=== PATIENT | female | born 1950 | race African-American/Black ===

== ENCOUNTER 2017-03-06 16:17 | Observation (INO) | payer OTHER, MEDICAID ==
[2017-03-06] MEDS ORDERED: ASPIRIN ONE (17:24)
[2017-03-06] MEDS ORDERED: NITROSTAT SL ONE (17:24)
[2017-03-06] MEDS ORDERED: MORPHINE SULFATE INJ 4 MG IVP ONE (17:29)
[2017-03-06] MEDS ORDERED: MORPHINE SULFATE INJ 4 MG ONE (17:30)
[2017-03-06] MEDS: NITROSTAT SL PRN ×2 (17:30→18:35)
--- NOTE | 2017-03-06 17:49 | DR.GENAD ---
HPI - PCP Primary Care Physician: DANNIELLE - Complaint/Symptoms Chief Complaint Doctors Comments: chest pain w/o nausea ,diaphoresis and SOB. Chief Complaint:: PT C/O BACK, ABD, AND LEG PAIN. PT STATES HER ABD IS HURTING AND SHE IS NOT ABLE TO KEEP ANYTHING DOWN. - Nurses notes reviewed Nurses Notes Review: Yes - Source History Provided: Patient - Mode of Arrival Mode of Arrival: Ambulatory - Timing Onset of Chief Complaint: 03/05/17 Came on: Gradually - Duration Duration: Intermittent - Severity Severity: Moderate PMH - PMH Past Medical History: Yes Past Medical History: Hypertension, Diabetes, Hypothyroidism, CVA Past Surgical History: Yes Surgical History: Abdominal Surgery, Ortho Surgery - Family History History of Family Medical Conditions: Yes Family Medical History: Diabetes Mellitus, [place], Hypertension - Social History Does any household member use tobacco: No Alcohol Use: Rarely Do you use any recreational Drugs:: No Lives With: Family Lives Where: Home - infectious screening In the last 2 months have you had wt loss of >10#?: NO Have you had fever, night sweats or hemotysis?: No Have you traveled outside the country in the last 6 months?: No Isolation: Standard ROS - Review of Systems Constitutional: No Symptoms Reported Eyes: No Symptoms Reported Respiratoy: No Symptoms Reported Cardiovascular: Chest Pain Gastrointestinal/Abdominal: Abdominal Pain Genitourinary: No Symptoms Reported Neurological: No Symptoms Reported Musculoskeletal: Leg Integumentary: No Symptoms Reported Hematologic/Lymphatic: No Symptoms Reported Endocrine: No Symptoms Reported Psychiatric: Other (stoic and flat affect) PE - Vital Signs Vitals: Temperature 98.4 F Pulse Rate [Right Brachial] 100 Pulse Rate 126 Respiratory Rate 20 Blood Pressure [Right Arm] 139/87 Blood Pressure [Left Arm] 130/77 Blood Pressure 155/99 O2 Sat by Pulse Oximetry 98 - General Limitations: Language Barrier General Appearance: Alert, In No Apparent Distress - Head Head Exam: Normal Inspection - Eyes Eye exam: Normal Appearance - ENT ENT Exam: Normal Exam External Ear Exam: Normal External Inspection Mouth Exam: Normal Inspection Throat Exam: Normal Inspection - Neck Neck Exam: Normal Inspection, Full ROM, Trachea Midline - Respiratory Respiratory Exam: Normal Lung Sounds Bilat - Cardiovascular Cardiovascular Exam: Regular Rate, Normal Rhythm, Normal Heart Sounds - Abdominal Exam Abdominal Exam: Normal Inspection, Normal Bowel Sounds, Soft - Back Back Exam: Normal Inspection - Psychiatric Psychiatric Exam: Flat Affect - Skin Skin Exam: Warm, Dry, Intact ROR - Labs Reviewed Result Diagrams: 03/06/17 16:50 03/06/17 16:50 Laboratory: WBC 5.7 X10^3/uL (3.6-10.0) 03/06/17 16:50 RBC 4.40 X10^6/uL (3.5-5.4) 03/06/17 16:50 Hgb 12.3 g/dL (12.0-16.0) 03/06/17 16:50 Hct 37.3 % (36.0-47.0) 03/06/17 16:50 MCV 84.7 fL (80.0-100.0) 03/06/17 16:50 MCH 27.8 pg (27.0-34.0) 03/06/17 16:50 MCHC 32.8 g/dL (33.0-35.0) L 03/06/17 16:50 RDW 14.1 % (11.6-16.5) 03/06/17 16:50 Plt Count 207 X10^3/uL (150.0-450.0) 03/06/17 16:50 Plt Count Comment Adequate (ADEQUATE) 03/06/17 16:50 MPV 9.5 fL (7.4-11.0) 03/06/17 16:50 Neut % 60.2 % (42.0-75.0) 03/06/17 16:50 Lymph % 30.6 % (21.0-51.0) 03/06/17 16:50 [place] % 7.0 % (0.0-13.0) 03/06/17 16:50 Eos % 1.5 % (0.9-2.9) 03/06/17 16:50 Baso % 0.7 % (0.2-1.0) 03/06/17 16:50 Neut # 3.3 x10^3/uL (2.2-4.8) 03/06/17 16:50 Lymph # 1.7 X10^3/uL (1.3-2.9) 03/06/17 16:50 [place] # 0.4 x10^3/uL (0.3-0.8) 03/06/17 16:50 Eos # 0.1 x10^3/uL (0.0-0.2) 03/06/17 16:50 Baso # 0.0 X10^3/uL (0.0-0.1) 03/06/17 16:50 Absolute Nucleated RBC 0.1 /100WBC 03/06/17 16:50 Plt Morphology Comment Normal (NORMAL) 03/06/17 16:50 RBC Morphology Abnormal (NORMAL) A 03/06/17 16:50 Hypochromasia 1+ A 03/06/17 16:50 Anisocytosis Slight A 03/06/17 16:50 Ovalocytes Present 03/06/17 16:50 Sodium 143 mmol/L (136-145) 03/06/17 16:50 Corrected Sodium 147 mmol/L (136-145) H 03/06/17 16:50 Potassium 3.5 mmol/L (3.5-5.1) 03/06/17 16:50 Chloride 107 mmol/L (98-107) 03/06/17 16:50 Carbon Dioxide 26.4 mmol/L (21-32) 03/06/17 16:50 BUN 15 mg/dL (7-18) 03/06/17 16:50 Creatinine 1.15 mg/dL (0.55-1.02) H 03/06/17 16:50 Est GFR (MDRD) Af Amer > 60 (>60) 03/06/17 16:50 Est GFR (MDRD) Non-Af 50 (>60) L 03/06/17 16:50 Glucose 255 mg/dL (65-99) H 03/06/17 16:50 Calcium 9.3 mg/dL (8.5-10.1) 03/06/17 16:50 Corrected Calcium 10.0 mg/dL (8.5-10.1) 03/06/17 16:50 Phosphorus 2.9 mg/dL (2.6-4.7) 03/06/17 16:50 Magnesium 1.6 mg/dL (1.7-2.9) L 03/06/17 16:50 Total Bilirubin 0.40 mg/dL (0.2-1.0) 03/06/17 16:50 AST 15 Units/L (15-37) 03/06/17 16:50 ALT 12 Units/L (12-78) 03/06/17 16:50 Alkaline Phosphatase 77 Units/L (46-116) 03/06/17 16:50 Creatine Kinase 74 Units/L (26-192) 03/06/17 20:28 CK-MB (CK-2) 3.6 ng/mL (0-4.0) 03/06/17 20:28 CK/CKMB % Calc 4.9 % (<4) 03/06/17 20:28 Troponin I 0.04 ng/mL (0-1.5) 03/06/17 20:28 Total Protein 7.1 g/dL (6.4-8.2) 03/06/17 16:50 Albumin 3.1 g/dL (3.4-5.0) L 03/06/17 16:50 Globulin 4.0 g/dL (2.5-4.5) 03/06/17 16:50 Albumin/Globulin Ratio 0.8 Ratio (1.1-2.1) L 03/06/17 16:50 - Diagnosis Discharge Problem: Chest pain in adult, Hypertension - Discharge Plan Disposition: ADMITTED INPATIENT Condition: Stable - Follow ups/Referrals Follow ups/Referrals: Mikhail Peña [Primary Care Provider] - 3 days - Instructions Instructions: Nonspecific Chest Pain, [id number] Additional Notes - Additional Notes Additional Notes: I spoke with Dr. Peña and he agreeas to observe this patient and r/o IN.
--- NOTE | 2017-03-06 17:53 | RAD ---
HISTORY: Chest pain Study: Single view chest Comparison: None Findings: The lungs are clear without consolidation, effusion or pneumothorax. The cardiac and mediastinal co ntours are within normal limits. The soft tissues are unremarkable. IMPRESSION: 1. No acute cardiopulmonary abnormality. Reported By:
[2017-03-06 18:01] LABS: BASOPHILS % (AUTO) 0.7 % (0.2-1.0); EOSINOPHILS # (AUTO) 0.1 x10^3/uL (0.0-0.2); EOSINOPHILS % (AUTO) 1.5 % (0.9-2.9); HEMATOCRIT 37.3 % (36.0-47.0); HEMOGLOBIN 12.3 g/dL (12.0-16.0); LYMPHOCYTES # (AUTO) 1.7 X10^3/uL (1.3-2.9); LYMPHOCYTES % (AUTO) 30.6 % (21.0-51.0); MEAN CORPUSCULAR HEMOGLOBIN 27.8 pg (27.0-34.0); MEAN CORPUSCULAR HGB CONC 32.8 g/dL (33.0-35.0); MEAN CORPUSCULAR VOLUME 84.7 fL (80.0-100.0); MEAN PLATELET VOLUME 9.5 fL (7.4-11.0); MONOCYTES # (AUTO) 0.4 x10^3/uL (0.3-0.8); NEUTROPHILS # (AUTO) 3.3 x10^3/uL (2.2-4.8); NEUTROPHILS % (AUTO) 60.2 % (42.0-75.0); PLATELET COUNT 207 X10^3/uL (150.0-450.0); RED CELL DISTRIBUTION WIDTH 14.1 % (11.6-16.5)
[2017-03-06 18:21] LABS: BLOOD UREA NITROGEN 15 mg/dL (7-18); CALCIUM 9.3 mg/dL (8.5-10.1); CARBON DIOXIDE 26.4 mmol/L (21-32); CHLORIDE 107 mmol/L (98-107); COR NA(FOR HYPERGLY) 147 mmol/L (136-145); CREATININE 1.15 mg/dL (0.55-1.02); GLUCOSE 255 mg/dL (65-99); SODIUM 143 mmol/L (136-145); TROPONIN I 0.04 ng/mL (0-1.5); eGFR BLACK RACES > 60 (>60); eGFR NON BLACK RACES 50 (>60)
[2017-03-06 18:24] LABS: ALANINE AMINOTRANSFERASE 12 Units/L (12-78); ALBUMIN 3.1 g/dL (3.4-5.0); ALKALINE PHOSPHATASE 77 Units/L (46-116); ASPARTATE AMINO TRANSFERASE 15 Units/L (15-37); CREATINE KINASE 79 Units/L (26-192); MAGNESIUM 1.6 mg/dL (1.7-2.9); PHOSPHORUS 2.9 mg/dL (2.6-4.7); TOTAL PROTEIN 7.1 g/dL (6.4-8.2)
[2017-03-06 18:34] LABS: ANISOCYTOSIS SLIGHT; HYPOCHROMASIA 1+; OVALOCYTES PRESENT; PLATELET MORPHOLOGY COMMENT NORMAL (NORMAL); WHITE BLOOD COUNT 5.7 X10^3/uL (3.6-10.0)
[2017-03-06 18:49] LABS: CKMB % 3.9 % (<4); CREATINE KINASE MB 3.1 ng/mL (0-4.0)
[2017-03-06] MEDS ORDERED: MAGNESIUM SULFATE 1 GM/100 mL PREMIX 1 GM/100 ML BAG IV ONE (19:49)
[2017-03-06] MEDS ORDERED: ZOVIRAX PO STA (20:48)
[2017-03-06 21:05] LABS: CKMB % 4.9 % (<4); CREATINE KINASE MB 3.6 ng/mL (0-4.0); TROPONIN I 0.04 ng/mL (0-1.5)
[2017-03-07 00:33] VITALS: BMI 33.4
[2017-03-07] MEDS ORDERED: MORPHINE SULFATE INJ 2 MG IVP PRN (00:44)
[2017-03-07] MEDS: ZOFRAN INJ 4 MG VIAL IVP PRN ×2 (00:48→09:19)
[2017-03-07 01:57] LABS: CKMB % 5.1 % (<4); CREATINE KINASE MB 3.7 ng/mL (0-4.0); TROPONIN I 0.04 ng/mL (0-1.5)
[2017-03-07 06:20] LABS: BASOPHILS % (AUTO) 0.4 % (0.2-1.0); EOSINOPHILS # (AUTO) 0.1 x10^3/uL (0.0-0.2); EOSINOPHILS % (AUTO) 2.3 % (0.9-2.9); HEMATOCRIT 32.3 % (36.0-47.0); HEMOGLOBIN 10.7 g/dL (12.0-16.0); LYMPHOCYTES # (AUTO) 2.4 X10^3/uL (1.3-2.9); LYMPHOCYTES % (AUTO) 46.7 % (21.0-51.0); MEAN CORPUSCULAR HEMOGLOBIN 28.1 pg (27.0-34.0); MEAN CORPUSCULAR HGB CONC 33.2 g/dL (33.0-35.0); MEAN CORPUSCULAR VOLUME 84.8 fL (80.0-100.0); MONOCYTES # (AUTO) 0.4 x10^3/uL (0.3-0.8); MONOCYTES % (AUTO) 8.9 % (0.0-13.0); NEUTROPHILS # (AUTO) 2.1 x10^3/uL (2.2-4.8); NEUTROPHILS % (AUTO) 41.7 % (42.0-75.0); PLATELET COUNT 180 X10^3/uL (150.0-450.0); RED BLOOD COUNT 3.81 X10^6/uL (3.5-5.4)
--- NOTE | 2017-03-07 06:34 | RAD ---
HISTORY: Chest pain Study: Chest one view Comparison: March 06, 2017, December 16, 2015 Findings: The trachea is midline. The cardiac silhouette is enlarged. No congestive heart failure is noted.. The lungs are clear without focal infiltrate or effusion. The bony thorax is unremarkable. IMPRESSION: 1. Cardiomegaly without congestive heart failure 2. Lungs clear Reported By:
[2017-03-07 06:41] LABS: ALANINE AMINOTRANSFERASE 10 Units/L (12-78); ALBUMIN 2.8 g/dL (3.4-5.0); ALKALINE PHOSPHATASE 65 Units/L (46-116); ASPARTATE AMINO TRANSFERASE 15 Units/L (15-37); BLOOD UREA NITROGEN 20 mg/dL (7-18); CALCIUM 8.9 mg/dL (8.5-10.1); CARBON DIOXIDE 28.7 mmol/L (21-32); CHLORIDE 109 mmol/L (98-107); CHOL/HDL RATIO 3.9 (0.0-5.0); CHOLESTEROL 206 mg/dL (0-200); CKMB % 5.4 % (<4); COR CA(FOR HYPOALB) 9.9 mg/dL (8.5-10.1); COR NA(FOR HYPERGLY) 146 mmol/L (136-145); CREATINE KINASE 74 Units/L (26-192); GLUCOSE 180 mg/dL (65-99); HDL CHOLESTEROL 53 mg/dL (40-60); MAGNESIUM 1.6 mg/dL (1.7-2.9); SODIUM 144 mmol/L (136-145); TOTAL PROTEIN 6.2 g/dL (6.4-8.2); TRIGLYCERIDES 64 mg/dL (0-150); TROPONIN I 0.04 ng/mL (0-1.5); eGFR BLACK RACES > 60 (>60); eGFR NON BLACK RACES 59 (>60)
[2017-03-07] MEDS ORDERED: POTASSIUM CHLORIDE LIQ 20 MEQ UDC PO PRN (06:52)
[2017-03-07] MEDS ORDERED: K-DUR TAB 20 MEQ PO PRN (06:52)
[2017-03-07] MEDS ORDERED: K-LYTE EFFERVESCENT PO PRN (06:52)
[2017-03-07] MEDS ORDERED: K-RIDER 10 MEQ/NS 100 ML 10 MEQ/100 ML BAG IV PRN (06:52)
[2017-03-07 08:04] VITALS: BP 149/75
[2017-03-07] MEDS ORDERED: ANUCORT-HC SUPP PR SCH (09:00)
[2017-03-07] MEDS ORDERED: GLUCOPHAGE PO SCH (09:00)
[2017-03-07] MEDS ORDERED: SYNTHROID 25 mcg TAB PO SCH (09:00)
[2017-03-07] MEDS ORDERED: LOPRESSOR TAB 50 MG PO SCH (09:00)
[2017-03-07] MEDS ORDERED: ASPIRIN EC 81 MG PO SCH (09:00)
[2017-03-07] MEDS ORDERED: COLACE CAP 100 MG PO SCH (09:00)
[2017-03-07] MEDS ORDERED: ASPIRIN PO ONE (17:30)
[2017-03-07] MEDS ORDERED: PATIENT'S HOME MEDICATION (Losartan Potassium [Losartan Potassium] 1 TAB) PO SCH (21:00)
[2017-03-07] MEDS ORDERED: PATIENT'S HOME MEDICATION (Amitriptyline Hcl [Amitriptyline Hcl] 1 TAB) PO SCH (21:00)
--- NOTE | 2017-03-11 13:39 | DR.CARTERS ---
Short Stay Summary - Short Stay Summary for: Short Stay Summary for Date of:: 03/07/17 - Admission Date Date of Admission: 03/06/17 - Discharge Date Discharge Date: 03/07/17 - Admission Diagnoses (1) Chest pain in adult Status: Acute (2) Hypertension Status: Acute - Hospital Course Hospital Course: Patient is a 66yo female who presented to the emergency room with complaints of chest pain. Patient also complains of back pain, abdominal pain and leg pain as well as not being able to keep anything down. Patient has a history of hypertension, diabetes, hypothyroidism and CVA. Vital signs on arrival were 98.4 , 126, 20, 96%, 155/99. And increased to 194/101. Labs on arrival were normal with the exception of MCHC 32.8, RBC Morphology abnormal A, Hypochromasia 1+A, Anicytosis Slight A, Creatinine 1.15, Glucose 255, Magnesium 1.6, Albumin 3.1, Albumin/globulin Ratio 0.9. EKG showed sinus tachycardia, with ventricular premature complex,. Patient was admitted as observation with diagnosis of chest pain, serial cardiac enzymes and EKG were ordered which remain normal. Patient was given magnesium IV for hypomagnesia, morphine and nitroglycerin PRN for pain and home medications resumed. The following am patient stated he felt much better and chest pain was resolved. Blood pressure down to 149/75 this am Vital signs 97.6, 100, 20, 98% on RA. Labs this am are within normal limits with the exception of hgb 10.7, hct 32.3, Net% 41.7, Neut# 2.1, Potassium 3.2, Chloride 109, BUN 20, glucose 180, Magnesium 1.6, ALT 10, Total Protein 6.2, Albumin 2.8 , Albumin/Globulin Ratio 0.8, Cholesterol 206 and LDL cholesterol 140. Chest Xray this am shows cardiomegaly without congestive heartfailure. Patient was discharge home in stable condition to continue his home medications which include Triamcinolone Cream BID, Neurontin 300mg PO BID, Cymbalta 60mg Po Daily , Lopressor 100mg PO BID, Keppra 250mg PO BID in addition to home medications Crestor 20mg po at bedtime, zantac 150mg po bid,Plavix 75mg po daily and aspirin 325mg have been prescribed for the patient. Patient is to follow up in the office in 1 week and will schedule him for a stress test, ECHO, carotid sonogram for further evaluation. - Discharge Medications Discharge Medications: Duloxetine HCl [CYMBALTA 60 MG *] 60 mg PO DAILY 03/06/17 [History] Gabapentin [NEURONTIN CAP 300 mg *] 300 mg PO BID 03/06/17 [History] Levetiracetam [Keppra] 250 mg PO BID 03/06/17 [History] Metoprolol Tartrate [Lopressor tab 100 mg] 100 mg PO BID 03/06/17 [History] Triamcinolone Acet Crm 0.1% [TRIAMCINOLONE CREAM 0.1 %*] 1 applic EXT BID [History] Aspirin EC [ECOTRIN 325 MG *] 325 mg PO DAILY #90 tab 03/07/17 [Rx] Clopidogrel Bisulfate [Plavix] 75 mg PO DAILY #30 tab 03/07/17 [Rx] Ranitidine HCl [ZANTAC TAB 150 MG *] 150 mg PO BID #60 tab 03/07/17 [Rx] Rosuvastatin Calcium [Crestor Tab 10 mg] 20 mg PO HS #30 tab 03/07/17 [Rx] - Discharge Plan Disposition: 01 HOME, SELF-CARE Condition: Stable Prescriptions: Aspirin EC [ECOTRIN 325 MG *] 325 mg PO DAILY #90 tab Clopidogrel Bisulfate [Plavix] 75 mg PO DAILY #30 tab Ranitidine HCl [ZANTAC TAB 150 MG *] 150 mg PO BID #60 tab Rosuvastatin Calcium [Crestor Tab 10 mg] 20 mg PO HS #30 tab - Follow up/Referrals Follow up/Referrals: Mikhail Peña [Primary Care Provider] - 03/17/17 3:20 pm - Instructions Instructions: Ranitidine tablets or capsules, Clopidogrel tablets, Form - Blood Pressure Record Sheet, Nonspecific Chest Pain, [id number], Aspirin and Your Heart, Hypertension, [id number], Heart Failure, [id number], Aspirin, ASA oral tablets, Rosuvastatin Tablets, Managing Your High Blood Pressure, Type 2 Diabetes Mellitus, Adult, [id number] Additional Instructions: Office to set patient up for Leanne Stress Test, ECHO, Carotid, AAA Screen Forms: Patient Portal
== END 2017-03-07 11:35 | disposition home or self-care (01) ==
LOC: ER 17:16 → MED/SURG 22:38
PROVIDERS: ADMIT Internal Medicine; ATTEND Internal Medicine
DX: R07.89 Other chest pain (principal); R06.02 Shortness of breath; R10.84 Generalized abdominal pain; I10 Essential (primary) hypertension; I51.7 Cardiomegaly; R94.31 Abnormal electrocardiogram [ECG] [EKG]
CPT/HCPCS: 36415; 71010; 80053; 80061; 82550; 82553; 83735; 84100; 84484; 85025; 93005; 94760; 96365; 96374; 99284; A4216; A4222; G0378; J2270; J2405

== ENCOUNTER 2017-03-14 14:08 | Emergency (ER) | payer OTHER, MEDICAID ==
[2017-03-14 14:17] VITALS: BP 174/79; BMI 37.8
--- NOTE | 2017-03-14 14:18 | DR.GENAD ---
HPI - PCP Primary Care Physician: Dr Peña - Complaint/Symptoms Chief Complaint Doctors Comments: Patient presents with complaint of chest pain ; radiating down left arm. She was on the 8th with same complaint cardiac workup negative. PMH - PMH Past Medical History: Hypertension, Diabetes, Hypothyroidism, CVA Past Surgical History: Yes Surgical History: Abdominal Surgery, Ortho Surgery - Family History Family Medical History: Diabetes Mellitus, [place], Hypertension - Social History Do you use any recreational Drugs:: No ROS - Review of Systems Eyes: No Symptoms Reported ENTM: No Symptoms Reported Respiratoy: No Symptoms Reported Cardiovascular: Chest Pain Gastrointestinal/Abdominal: No Symptoms Reported Genitourinary: No Symptoms Reported Neurological: No Symptoms Reported Musculoskeletal: No Symptoms Reported Integumentary: No Symptoms Reported Hematologic/Lymphatic: No Symptoms Reported Endocrine: No Symptoms Reported Psychiatric: No Symptoms Reported All Other Systems: Reviewed and Negative PE - Vital Signs Vitals: Temperature 98.7 F Pulse Rate 73 Respiratory Rate 16 Blood Pressure [Right Arm] 127/73 Blood Pressure [Left Arm] 149/75 Blood Pressure 174/79 O2 Sat by Pulse Oximetry 100 - General Limitations: No Limitations General Appearance: Alert, In No Apparent Distress - Head Head Exam: Normal Inspection, Atraumatic - Eyes Eye exam: Normal Appearance, PERRL, EOMI - ENT ENT Exam: Normal Exam, Mucous Membranes Moist TM/Canal Exam: Bilateral Normal Nose Exam: Normal Nose Exam, Sinus Tenderness Mouth Exam: Normal Inspection Throat Exam: Normal Inspection - Neck Neck Exam: Normal Inspection, Full ROM - Chest Chest Inspection: Normal Inspection - Respiratory Respiratory Exam: Normal Lung Sounds Bilat Respiratory Exam: Bilateral Clear to Auscultation - Cardiovascular Cardiovascular Exam: Regular Rate, Normal Rhythm - Abdominal Exam Abdominal Exam: Normal Inspection, Normal Bowel Sounds Abdominal Tenderness: negative: RUQ, RLQ, LUQ, LLQ, Epigastrium, Suprapubic, Diffuse, Mild, Moderate, Severe, Other - Extremities Extremities Exam: Normal Inspection - Back Back Exam: Normal Inspection - Neurologic Neurological Exam: Alert, Oriented X3, CN II-XII Intact - Skin Skin Exam: Warm, Dry, Intact ROR - Labs Reviewed Result Diagrams: 03/14/17 14:35 03/14/17 14:35 Laboratory: WBC 4.7 X10^3/uL (3.6-10.0) 03/14/17 14:35 RBC 4.15 X10^6/uL (3.5-5.4) 03/14/17 14:35 Hgb 11.7 g/dL (12.0-16.0) L 03/14/17 14:35 Hct 35.4 % (36.0-47.0) L 03/14/17 14:35 MCV 85.2 fL (80.0-100.0) 03/14/17 14:35 MCH 28.3 pg (27.0-34.0) 03/14/17 14:35 MCHC 33.2 g/dL (33.0-35.0) 03/14/17 14:35 RDW 14.3 % (11.6-16.5) 03/14/17 14:35 Plt Count 218 X10^3/uL (150.0-450.0) 03/14/17 14:35 MPV 8.9 fL (7.4-11.0) 03/14/17 14:35 Neut % 47.1 % (42.0-75.0) 03/14/17 14:35 Lymph % 39.9 % (21.0-51.0) 03/14/17 14:35 [place] % 9.2 % (0.0-13.0) 03/14/17 14:35 Eos % 2.3 % (0.9-2.9) 03/14/17 14:35 Baso % 1.5 % (0.2-1.0) H 03/14/17 14:35 Neut # 2.2 x10^3/uL (2.2-4.8) 03/14/17 14:35 Lymph # 1.9 X10^3/uL (1.3-2.9) 03/14/17 14:35 [place] # 0.4 x10^3/uL (0.3-0.8) 03/14/17 14:35 Eos # 0.1 x10^3/uL (0.0-0.2) 03/14/17 14:35 Baso # 0.1 X10^3/uL (0.0-0.1) 03/14/17 14:35 Absolute Nucleated RBC 0.0 /100WBC 03/14/17 14:35 Sodium 145 mmol/L (136-145) 03/14/17 14:35 Corrected Sodium 148 mmol/L (136-145) H 03/14/17 14:35 Potassium 5.0 mmol/L (3.5-5.1) 03/14/17 14:35 Chloride 110 mmol/L (98-107) H 03/14/17 14:35 Carbon Dioxide 27.9 mmol/L (21-32) 03/14/17 14:35 BUN 14 mg/dL (7-18) 03/14/17 14:35 Creatinine 1.18 mg/dL (0.55-1.02) H 03/14/17 14:35 Est GFR (MDRD) Af Amer 59 (>60) 03/14/17 14:35 Est GFR (MDRD) Non-Af 49 (>60) L 03/14/17 14:35 Glucose 217 mg/dL (65-99) H 03/14/17 14:35 Calcium 10.2 mg/dL (8.5-10.1) H 03/14/17 14:35 Corrected Calcium 10.9 mg/dL (8.5-10.1) H 03/14/17 14:35 Phosphorus 3.7 mg/dL (2.6-4.7) 03/14/17 14:35 Magnesium 1.5 mg/dL (1.7-2.9) L 03/14/17 14:35 Total Bilirubin 0.40 mg/dL (0.2-1.0) 03/14/17 14:35 AST 22 Units/L (15-37) 03/14/17 14:35 ALT 12 Units/L (12-78) 03/14/17 14:35 Alkaline Phosphatase 73 Units/L (46-116) 03/14/17 14:35 Creatine Kinase 123 Units/L (26-192) 03/14/17 14:35 CK-MB (CK-2) 2.5 ng/mL (0-4.0) 03/14/17 14:35 CK/CKMB % Calc 2.0 % (<4) 03/14/17 14:35 Troponin I 0.03 ng/mL (0-1.5) 03/14/17 14:35 Total Protein 7.1 g/dL (6.4-8.2) 03/14/17 14:35 Albumin 3.1 g/dL (3.4-5.0) L 03/14/17 14:35 Globulin 4.0 g/dL (2.5-4.5) 03/14/17 14:35 Albumin/Globulin Ratio 0.8 Ratio (1.1-2.1) L 03/14/17 14:35 - XRAY XRAY Interpreted by: Radiologist (No acute cardiopulmonary disease) - Diagnosis Discharge Problem: Chest pain in adult - Discharge Plan Condition: Stable - Follow ups/Referrals Follow ups/Referrals: Mikhail Peña [Primary Care Provider] - 3 days - Instructions
--- NOTE | 2017-03-14 14:27 | RAD ---
HISTORY: 66-year-old female with chest pain. Study: Single frontal view of the chest. Comparison: Chest radiographs March 07, 2017. Findings: Study is significantly limited secondary to patient positioning, body habitus and excessive quantum mottle. The trachea is midline. The cardiac silhouette is stably enlarged. Low lung volumes without focal consolidation, effusion or pneumothorax. The bony thorax is unremarkable. IMPRESSION: 1. No gross acute cardiopulmonary disease. repeat imaging with PA and lateral views when patient can tolerate is recommended. Reported By:
[2017-03-14 14:44] LABS: BASOPHILS # (AUTO) 0.1 X10^3/uL (0.0-0.1); BASOPHILS % (AUTO) 1.5 % (0.2-1.0); EOSINOPHILS # (AUTO) 0.1 x10^3/uL (0.0-0.2); EOSINOPHILS % (AUTO) 2.3 % (0.9-2.9); HEMATOCRIT 35.4 % (36.0-47.0); HEMOGLOBIN 11.7 g/dL (12.0-16.0); LYMPHOCYTES # (AUTO) 1.9 X10^3/uL (1.3-2.9); LYMPHOCYTES % (AUTO) 39.9 % (21.0-51.0); MEAN CORPUSCULAR HEMOGLOBIN 28.3 pg (27.0-34.0); MEAN CORPUSCULAR HGB CONC 33.2 g/dL (33.0-35.0); MEAN CORPUSCULAR VOLUME 85.2 fL (80.0-100.0); MEAN PLATELET VOLUME 8.9 fL (7.4-11.0); MONOCYTES # (AUTO) 0.4 x10^3/uL (0.3-0.8); MONOCYTES % (AUTO) 9.2 % (0.0-13.0); NEUTROPHILS # (AUTO) 2.2 x10^3/uL (2.2-4.8); NEUTROPHILS % (AUTO) 47.1 % (42.0-75.0); PLATELET COUNT 218 X10^3/uL (150.0-450.0); RED BLOOD COUNT 4.15 X10^6/uL (3.5-5.4); RED CELL DISTRIBUTION WIDTH 14.3 % (11.6-16.5); WHITE BLOOD COUNT 4.7 X10^3/uL (3.6-10.0)
[2017-03-14] MEDS ORDERED: NS 1000 ML 1,000 ML IV SCH (15:00)
[2017-03-14 15:03] LABS: CALCIUM 10.2 mg/dL (8.5-10.1); CARBON DIOXIDE 27.9 mmol/L (21-32); CREATININE 1.18 mg/dL (0.55-1.02); TROPONIN I 0.03 ng/mL (0-1.5)
[2017-03-14 15:04] LABS: ALBUMIN 3.1 g/dL (3.4-5.0); COR CA(FOR HYPOALB) 10.9 mg/dL (8.5-10.1); CREATINE KINASE MB 2.5 ng/mL (0-4.0); MAGNESIUM 1.5 mg/dL (1.7-2.9); PHOSPHORUS 3.7 mg/dL (2.6-4.7); TOTAL PROTEIN 7.1 g/dL (6.4-8.2)
[2017-03-14] MEDS ORDERED: MORPHINE SULFATE INJ 2 MG IVP ONE (15:26)
[2017-03-14] MEDS ORDERED: MORPHINE SULFATE INJ 2 MG ONE (15:26)
== END 2017-03-14 16:19 | disposition home or self-care (01) ==
LOC: ER 14:08
DX: R07.89 Other chest pain (principal)
CPT/HCPCS: 36415; 71010; 80053; 82550; 82553; 83735; 84100; 84484; 85025; 93005; 96365; 96374; 99283; A4222; J2270

== ENCOUNTER 2017-03-27 18:39 | Emergency (ER) | payer OTHER, MEDICAID ==
[2017-03-27 18:50] VITALS: BMI 35.3
--- NOTE | 2017-03-27 19:44 | DR.GENAD ---
HPI - PCP Primary Care Physician: ne - Complaint/Symptoms Chief Complaint Doctors Comments: Patient presents with complaint of abdomen, chest and arm. She has been evaluated by her primary care physician and arrangements are being made to have patient evaluted by Dr Bello. Patient has been away from the community for a while and recently returned. Chief Complaint:: hurting in chest back legs and stomach - Source History Provided: Patient - Mode of Arrival Mode of Arrival: Wheelchair - Timing Onset of Chief Complaint: 02/25/17 PMH - PMH Past Medical History: Yes Past Medical History: Hypertension, Diabetes, Hypothyroidism, CVA Past Surgical History: Yes Surgical History: Abdominal Surgery, Ortho Surgery - Family History History of Family Medical Conditions: Yes Family Medical History: Diabetes Mellitus, [place], Hypertension - Social History Does any household member use tobacco: No Alcohol Use: None Do you use any recreational Drugs:: No Lives With: Family Lives Where: Home - infectious screening In the last 2 months have you had wt loss of >10#?: NO Have you had fever, night sweats or hemotysis?: No Have you traveled outside the country in the last 6 months?: No Isolation: Standard ROS - Review of Systems Eyes: No Symptoms Reported ENTM: No Symptoms Reported Respiratoy: No Symptoms Reported Cardiovascular: No Symptoms Reported Gastrointestinal/Abdominal: No Symptoms Reported Genitourinary: No Symptoms Reported Neurological: No Symptoms Reported Musculoskeletal: No Symptoms Reported Integumentary: No Symptoms Reported Hematologic/Lymphatic: No Symptoms Reported Endocrine: No Symptoms Reported Psychiatric: No Symptoms Reported All Other Systems: Reviewed and Negative PE - Vital Signs Vitals: Temperature 98.3 F Pulse Rate 97 Respiratory Rate 16 Blood Pressure [Right Arm] 127/73 Blood Pressure [Left Arm] 149/75 Blood Pressure 167/117 O2 Sat by Pulse Oximetry 98 - General Limitations: No Limitations General Appearance: Alert, In No Apparent Distress - Head Head Exam: Normal Inspection, Atraumatic - Eyes Eye exam: Normal Appearance, PERRL, EOMI - ENT ENT Exam: Normal Exam External Ear Exam: Normal External Inspection TM/Canal Exam: Bilateral Normal Nose Exam: Normal Nose Exam Mouth Exam: Normal Inspection Throat Exam: Normal Inspection - Neck Neck Exam: Normal Inspection - Chest Chest Inspection: Normal Inspection - Respiratory Respiratory Exam: Normal Lung Sounds Bilat Respiratory Exam: Bilateral Clear to Auscultation - Cardiovascular Cardiovascular Exam: Regular Rate, Normal Rhythm - Abdominal Exam Abdominal Exam: Normal Inspection Abdominal Tenderness: Epigastrium - Extremities Extremities Exam: Normal Inspection, Full ROM - Back Back Exam: Normal Inspection - Neurologic Neurological Exam: Alert, Oriented X3, CN II-XII Intact - Psychiatric Psychiatric Exam: Normal Affect - Skin Skin Exam: Warm, Dry, Intact ROR - Labs Reviewed Result Diagrams: 03/27/17 20:05 03/27/17 20:05 Laboratory: WBC 3.9 X10^3/uL (3.6-10.0) 03/27/17 20:05 RBC 4.12 X10^6/uL (3.5-5.4) 03/27/17 20:05 Hgb 11.4 g/dL (12.0-16.0) L 03/27/17 20:05 Hct 35.0 % (36.0-47.0) L 03/27/17 20:05 MCV 84.9 fL (80.0-100.0) 03/27/17 20:05 MCH 27.8 pg (27.0-34.0) 03/27/17 20:05 MCHC 32.7 g/dL (33.0-35.0) L 03/27/17 20:05 RDW 14.4 % (11.6-16.5) 03/27/17 20:05 Plt Count 201 X10^3/uL (150.0-450.0) 03/27/17 20:05 MPV 9.1 fL (7.4-11.0) 03/27/17 20:05 Neut % 47.0 % (42.0-75.0) 03/27/17 20:05 Lymph % 40.8 % (21.0-51.0) 03/27/17 20:05 [place] % 8.7 % (0.0-13.0) 03/27/17 20:05 Eos % 3.1 % (0.9-2.9) H 03/27/17 20:05 Baso % 0.4 % (0.2-1.0) 03/27/17 20:05 Neut # 1.8 x10^3/uL (2.2-4.8) L 03/27/17 20:05 Lymph # 1.6 X10^3/uL (1.3-2.9) 03/27/17 20:05 [place] # 0.3 x10^3/uL (0.3-0.8) 03/27/17 20:05 Eos # 0.1 x10^3/uL (0.0-0.2) 03/27/17 20:05 Baso # 0.0 X10^3/uL (0.0-0.1) 03/27/17 20:05 Absolute Nucleated RBC 0.1 /100WBC 03/27/17 20:05 Sodium 139 mmol/L (136-145) 03/27/17 20:05 Corrected Sodium 141 mmol/L (136-145) 03/27/17 20:05 Potassium 4.2 mmol/L (3.5-5.1) 03/27/17 20:05 Chloride 108 mmol/L (98-107) H 03/27/17 20:05 Carbon Dioxide 28.0 mmol/L (21-32) 03/27/17 20:05 BUN 19 mg/dL (7-18) H 03/27/17 20:05 Creatinine 1.11 mg/dL (0.55-1.02) H 03/27/17 20:05 Est GFR (MDRD) Af Amer > 60 (>60) 03/27/17 20:05 Est GFR (MDRD) Non-Af 52 (>60) L 03/27/17 20:05 Glucose 188 mg/dL (65-99) H 03/27/17 20:05 Calcium 9.1 mg/dL (8.5-10.1) 03/27/17 20:05 Corrected Calcium 9.8 mg/dL (8.5-10.1) 03/27/17 20:05 Total Bilirubin 0.20 mg/dL (0.2-1.0) 03/27/17 20:05 AST 13 Units/L (15-37) L 03/27/17 20:05 ALT 11 Units/L (12-78) L 03/27/17 20:05 Alkaline Phosphatase 66 Units/L (46-116) 03/27/17 20:05 Creatine Kinase 100 Units/L (26-192) 03/27/17 20:05 CK-MB (CK-2) 2.5 ng/mL (0-4.0) 03/27/17 20:05 CK/CKMB % Calc 2.5 % (<4) 03/27/17 20:05 Troponin I 0.03 ng/mL (0-1.5) 03/27/17 20:05 Total Protein 6.9 g/dL (6.4-8.2) 03/27/17 20:05 Albumin 3.1 g/dL (3.4-5.0) L 03/27/17 20:05 Globulin 3.8 g/dL (2.5-4.5) 03/27/17 20:05 Albumin/Globulin Ratio 0.8 Ratio (1.1-2.1) L 03/27/17 20:05 Specimen Type Clean catch urine 03/27/17 21:59 Urine Color Yellow (YELLOW) 03/27/17 21:59 Urine Appearance Clear (CLEAR) 03/27/17 21:59 Urine pH 5.0 (5.0 - 8.0) 03/27/17 21:59 Ur Specific [place] 1.020 (1.000-1.030) 03/27/17 21:59 Urine Protein 2+ (NEGATIVE) 03/27/17 21:59 Urine Glucose (UA) 3+ (NEGATIVE) 03/27/17 21:59 Urine Ketones Negative (NEGATIVE) 03/27/17 21:59 Urine Occult Blood 2+ (NEGATIVE) 03/27/17 21:59 Urine Nitrite Negative (NEGATIVE) 03/27/17 21:59 Urine Bilirubin Negative (NEGATIVE) 03/27/17 21:59 Urine Urobilinogen Normal (NORMAL) 03/27/17 21:59 Ur Leukocyte Esterase Negative (NEGATIVE) 03/27/17 21:59 Urine RBC 0-3 /HPF (NEGATIVE) 03/27/17 21:59 Urine WBC 0-3 /HPF (NEGATIVE) 03/27/17 21:59 Ur Squamous Epith Cells Rare /HPF (NEGATIVE) 03/27/17 21:59 Urine Bacteria Negative /HPF (NEGATIVE) 03/27/17 21:59 Ur Culture Indicated? No/not indicated 03/27/17 21:59 - XRAY XRAY Interpreted by: Radiologist (Chest negative for pathology) - Diagnosis Discharge Problem: Generalized anxiety disorder, Stomach pain - Discharge Plan Condition: Stable - Follow ups/Referrals Follow ups/Referrals: NFD,None [Primary Care Provider] - 3 days - Instructions
[2017-03-27 20:29] LABS: BASOPHILS % (AUTO) 0.4 % (0.2-1.0); EOSINOPHILS # (AUTO) 0.1 x10^3/uL (0.0-0.2); EOSINOPHILS % (AUTO) 3.1 % (0.9-2.9); HEMOGLOBIN 11.4 g/dL (12.0-16.0); LYMPHOCYTES # (AUTO) 1.6 X10^3/uL (1.3-2.9); LYMPHOCYTES % (AUTO) 40.8 % (21.0-51.0); MEAN CORPUSCULAR HEMOGLOBIN 27.8 pg (27.0-34.0); MEAN CORPUSCULAR HGB CONC 32.7 g/dL (33.0-35.0); MEAN CORPUSCULAR VOLUME 84.9 fL (80.0-100.0); MEAN PLATELET VOLUME 9.1 fL (7.4-11.0); MONOCYTES # (AUTO) 0.3 x10^3/uL (0.3-0.8); MONOCYTES % (AUTO) 8.7 % (0.0-13.0); NEUTROPHILS # (AUTO) 1.8 x10^3/uL (2.2-4.8); PLATELET COUNT 201 X10^3/uL (150.0-450.0); RED BLOOD COUNT 4.12 X10^6/uL (3.5-5.4); RED CELL DISTRIBUTION WIDTH 14.4 % (11.6-16.5); WHITE BLOOD COUNT 3.9 X10^3/uL (3.6-10.0)
[2017-03-27 20:45] LABS: BLOOD UREA NITROGEN 19 mg/dL (7-18); CALCIUM 9.1 mg/dL (8.5-10.1); CHLORIDE 108 mmol/L (98-107); COR NA(FOR HYPERGLY) 141 mmol/L (136-145); CREATININE 1.11 mg/dL (0.55-1.02); GLUCOSE 188 mg/dL (65-99); SODIUM 139 mmol/L (136-145); TROPONIN I 0.03 ng/mL (0-1.5); eGFR BLACK RACES > 60 (>60); eGFR NON BLACK RACES 52 (>60)
[2017-03-27 20:46] LABS: ALANINE AMINOTRANSFERASE 11 Units/L (12-78); ALBUMIN 3.1 g/dL (3.4-5.0); ALKALINE PHOSPHATASE 66 Units/L (46-116); ASPARTATE AMINO TRANSFERASE 13 Units/L (15-37); CKMB % 2.5 % (<4); COR CA(FOR HYPOALB) 9.8 mg/dL (8.5-10.1); CREATINE KINASE 100 Units/L (26-192); CREATINE KINASE MB 2.5 ng/mL (0-4.0); TOTAL PROTEIN 6.9 g/dL (6.4-8.2)
--- NOTE | 2017-03-27 21:11 | RAD ---
Chest AP portable Indication: Chest pain. Comparison: March 14, 2017. Findings: There is no pneumothorax. There is cardiomegaly. No consolidation or effusion seen. Impression: No acute chest process. Cardiomegaly, similar to the prior. Reported By:
[2017-03-27 22:11] LABS: BILIRUBIN,URINE NEGATIVE (NEGATIVE); BLOOD/HEMOGLOBIN,URINE 2+ (NEGATIVE); GLUCOSE, URINE 3+ (NEGATIVE); KETONES,URINE NEGATIVE (NEGATIVE); LEUKOCYTE ESTERASE ,URINE NEGATIVE (NEGATIVE); NITRITES,URINE NEGATIVE (NEGATIVE); PROTEIN,URINE 2+ (NEGATIVE); UROBILINOGEN,URINE NORMAL (NORMAL)
[2017-03-27 22:35] LABS: APPEARANCE,URINE CLEAR (CLEAR); BACTERIA,URINE NEGATIVE /HPF (NEGATIVE); COLOR,URINE YELLOW (YELLOW); RBC,URINE 0-3 /HPF (NEGATIVE); SQUAMOUS EPITHELIAL CELL,UR RARE /HPF (NEGATIVE)
[2017-03-27] MEDS ORDERED: PROTONIX INJ 40 MG VIAL IVP ONE (22:49)
[2017-03-27] MEDS ORDERED: PROTONIX INJ 40 MG VIAL ONE (22:50)
[2017-03-27 22:51] VITALS: BP 169/74
[2017-03-27] MEDS ORDERED: PROTONIX TAB 40 MG PO ONE (22:51)
[2017-03-27] MEDS: PROTONIX TAB 40 MG PO ONE ×2 (22:54→22:59)
== END 2017-03-27 23:04 | disposition home or self-care (01) ==
LOC: ER 18:57
DX: F41.8 Other specified anxiety disorders (principal); R10.13 Epigastric pain
CPT/HCPCS: 36415; 71010; 80053; 81001; 82550; 82553; 84484; 85025; 93005; 99283; C9113

== ENCOUNTER → 2017-04-17 | Outpatient (CLI) | payer OTHER, MEDICAID ==
[2017-03-27 22:51] VITALS: BP 169/74
[2017-04-17 10:52] LABS: BASOPHILS % (AUTO) 0.5 % (0.2-1.0); EOSINOPHILS % (AUTO) 0.8 % (0.9-2.9); HEMATOCRIT 35.7 % (36.0-47.0); HEMOGLOBIN 11.9 g/dL (12.0-16.0); LYMPHOCYTES # (AUTO) 2.2 X10^3/uL (1.3-2.9); LYMPHOCYTES % (AUTO) 43.1 % (21.0-51.0); MEAN CORPUSCULAR HEMOGLOBIN 27.9 pg (27.0-34.0); MEAN CORPUSCULAR HGB CONC 33.2 g/dL (33.0-35.0); MEAN CORPUSCULAR VOLUME 84.1 fL (80.0-100.0); MEAN PLATELET VOLUME 8.7 fL (7.4-11.0); MONOCYTES # (AUTO) 0.5 x10^3/uL (0.3-0.8); MONOCYTES % (AUTO) 9.2 % (0.0-13.0); NEUTROPHILS # (AUTO) 2.4 x10^3/uL (2.2-4.8); NEUTROPHILS % (AUTO) 46.4 % (42.0-75.0); PLATELET COUNT 194 X10^3/uL (150.0-450.0); RED BLOOD COUNT 4.25 X10^6/uL (3.5-5.4); WHITE BLOOD COUNT 5.2 X10^3/uL (3.6-10.0)
[2017-04-17 11:22] LABS: ALBUMIN 3.4 g/dL (3.4-5.0); BILIRUBIN,DIRECT 0.07 mg/dL (0-0.2); CALCIUM 9.3 mg/dL (8.5-10.1); CARBON DIOXIDE 30.9 mmol/L (21-32); CHOL/HDL RATIO 1.7 (0.0-5.0); CREATININE 1.55 mg/dL (0.55-1.02); TOTAL PROTEIN 7.7 g/dL (6.4-8.2)
== END ==
LOC: LAB 09:58
PROVIDERS: ATTEND Physician Assistant
DX: R06.09 Other forms of dyspnea (principal); I10 Essential (primary) hypertension; E78.4 Other hyperlipidemia
CPT/HCPCS: 36415; 80048; 80061; 80076; 85025